=== PATIENT | female | born 1960 | race Caucasian/White ===

== ENCOUNTER → 2024-03-22 06:33 | Day surgery (SDC) | payer MEDICARE, SELFPAY ==
[2024-03-22 07:46] LABS: Glucose - Point of Care 116 mg/dl (70-99)
== END ==
LOC: GI 06:33
PROVIDERS: ATTENDING PHYSICIAN Internal Medicine
DX: Z12.11 Encounter for screening for malignant neoplasm of colon (principal)
CPT/HCPCS: G0121; 82962

== ENCOUNTER → 2025-05-24 10:15 | Outpatient (REF) | payer MEDICARE, SELFPAY | LOC: HWRAD 10:15 | PROVIDERS: ATTENDING PHYSICIAN Family Medicine | DX: R06.89 Other abnormalities of breathing (principal) | CPT/HCPCS: 71046 ==

== ENCOUNTER → 2025-06-10 08:00 | Outpatient (REF) | payer MEDICARE, SELFPAY | LOC: HWRAD 08:00 | PROVIDERS: ATTENDING PHYSICIAN Family Medicine | DX: J98.4 Other disorders of lung (principal) | CPT/HCPCS: 71250 ==